=== PATIENT | female | born 1975 ===

== ENCOUNTER → 2018-01-11 | Outpatient (CLI) | payer OTHER ==
[~2018-01-11] MED LIST: Adipex-P37.5 MG PO; HYDHCL25; PROAIR RESPICL90 MCG; TAYTULLA 1 MG-1 EACH PO; ZOLP10 PO
[2018-01-14 14:10] LABS: HPV 16 Negative (Negative); HPV 18 Negative (Negative); HPV OTHER HR TYPES Negative (Negative)
== END ==
LOC: LAB 09:57 → LAB SHORT 09:57
PROVIDERS: Nurse Practitioner Family
DX: Z01.419 Encounter for gynecological examination (general) (routine) without abnormal findings (principal); Z01.411 Encounter for gynecological examination (general) (routine) with abnormal findings
CPT/HCPCS: 87624; G0145